=== PATIENT | female | born 1980 | race Caucasian/White ===

== ENCOUNTER → 2016-05-20 | Outpatient (CLI) | payer BC ==
[~2016-05-20] MED LIST: IBUP200C PO; NORCOTAB PO; TYLE325T5 PO
[2016-05-20 13:21] LABS: BASO % 0.3 % (0.0-1.0); EOS # 0.1 K/mm3 (0.0-0.50); EOS % 1.1 % (0.0-3.0); LARGE UNSTAINED CELL # 0.2 K/mm3 (0.0-0.4); LYMPH % 23.5 % (24.0-44.0); MEAN CORPUSCULAR HEMOGLOBIN 25.6 pg (27.0-33.0); MONO # 0.4 K/mm3 (0.0-0.8); MONO % 4.6 % (0.0-5.0); NEUTROPHILS # 5.7 K/mm3 (1.8-7.7); NEUTROPHILS % 68.6 % (36.0-66.0); PLATELET COUNT, AUTOMATED 230 k/mm3 (150-450); RED CELL DISTRIBUTION WIDTH 13.7 % (11.5-14.5); WHITE BLOOD COUNT 8.3 K/mm3 (4.0-10.0)
[2016-05-20 14:12] LABS: ANION GAP 8 MEQ/L (8-16); BLOOD UREA NITROGEN 13 MG/DL (7-18); CARBON DIOXIDE LEVEL 29 MEQ/L (21-32); CHLORIDE LEVEL 103 MEQ/L (98-107); CHOLESTEROL LEVEL 191 MG/DL (<200); CREATININE FOR GFR 0.74 MG/DL (0.55-1.02); FERRITIN 12 NG/ML (8-252); GLOMERULAR FILTRATION RATE > 60.0 (>60); GLUCOSE, FASTING 89 MG/DL (70-105); PERCENT SATURATION 12.2 % (13.2-37.4); POTASSIUM SERUM 4.6 MEQ/L (3.5-5.1); SODIUM LEVEL 140 MEQ/L (136-145); TOTAL IRON BINDING CAPACITY 410 UG/DL (250-450); TRIGLYCERIDES LEVEL 234 MG/DL (<150)
== END ==
LOC: M WUC 08:38
PROVIDERS: ATTEND Physician Assistant Medical
DX: E78.1 Pure hyperglyceridemia (principal); R60.0 Localized edema; D50.9 Iron deficiency anemia, unspecified

== ENCOUNTER → 2016-06-02 | Outpatient (CLI) | payer BC ==
[~2016-06-02] MED LIST changes: +METHACHOLINE KIT (J7674) INH ONE
== END ==
LOC: M CARPUL 08:32
PROVIDERS: ATTEND Nurse Practitioner Adult Health
DX: R06.02 Shortness of breath (principal)

== ENCOUNTER 2016-07-31 11:34 | Emergency (ER) | payer BC ==
[~2016-07-31] VITALS: Ht 172.7 cm; Wt 113.4 kg
[~2016-07-31 11:34] MED LIST changes: -METHACHOLINE KIT (J7674) INH ONE
[2016-07-31] MEDS ORDERED: OMEP40CA2 PO (11:41)
--- NOTE | 2016-07-31 13:00 | REP ---
Clinical: Right lower quadrant pain. Ovarian cyst. Technique: Transabdominal pelvic ultrasound with color Doppler evaluation of the ovaries. Findings: Bladder is unremarkable and measures 5.2 x 4.4 x 4.2 cm . Normal anteverted uterus measures 10.6 x 4.7 x 6.2 cm . The endometrial complex measures 5.9 mm thickness. No discrete uterine or endometrial abnormalities are appreciated. Bilateral ovaries are normal in appearance and vascularity without evidence for torsion. Right ovary measures 3.2 x 2.5 x 2.6 cm ; R I = 0.56 . Left ovary measures 3.3 x 1.9 x 2.9 cm ; R I = 0.53 . No pelvic fluid or adnexal mass lesion . Impression: 1. normal pelvic ultrasound. 2. No ovarian torsion and no ovarian cyst. Signed by Saeed Petty MD 07/31/2016 12:51 P
[2016-07-31 13:05] LABS: MEAN CORPUSCULAR HEMOGLOBIN 24.4 pg (27.0-33.0); MEAN CORPUSCULAR HGB CONC 31.3 g/dl (32.0-36.5); MEAN CORPUSCULAR VOLUME 77.8 fl (80.0-96.0); WHITE BLOOD COUNT 8.6 K/mm3 (4.0-10.0)
[2016-07-31 13:20] LABS: ANION GAP 6 MEQ/L (8-16); BLOOD UREA NITROGEN 11 MG/DL (7-18); CALCIUM LEVEL 8.8 MG/DL (8.5-10.1); CARBON DIOXIDE LEVEL 31 MEQ/L (21-32); CHLORIDE LEVEL 102 MEQ/L (98-107); CREATININE FOR GFR 0.81 MG/DL (0.55-1.02); GLOMERULAR FILTRATION RATE > 60.0 (>60); GLUCOSE, FASTING 96 MG/DL (70-105); POTASSIUM SERUM 3.5 MEQ/L (3.5-5.1); SODIUM LEVEL 139 MEQ/L (136-145)
[2016-07-31] MEDS ORDERED: ZOFR4TAB3 PO (13:37)
[2016-07-31] MEDS ORDERED: IBUP600T26 PO (13:37)
[2016-07-31 13:48] VITALS: BP 130/74
== END 2016-07-31 13:56 | disposition home or self-care (01) ==
LOC: M ED 12:10
DX: R10.2 Pelvic and perineal pain (principal)

== ENCOUNTER → 2017-02-24 | Outpatient (REF) | payer BC ==
[~2017-02-24] MED LIST changes: +IBUP-1022 PO; -IBUP200C PO; +IBUP200C10 PO; +OMEP40CA2 PO; +ZOFR4TAB3 PO
== END ==
LOC: M LAB REF 13:28
PROVIDERS: ATTEND Physician Assistant Medical
DX: L02.224 Furuncle of groin (principal); Z12.4 Encounter for screening for malignant neoplasm of cervix
CPT/HCPCS: 87070; 87077; 87186; 87205; G0123

== ENCOUNTER → 2017-04-08 | Outpatient (CLI) | payer BC ==
[2017-04-08 12:26] LABS: BASO % 0.4 % (0.0-1.0); EOS # 0.1 10^3/uL (0.0-0.50); EOS % 0.6 % (0.0-3.0); IMMATURE GRANULOCYTE % 0.4 % (0-0); LYMPH # 1.6 10^3/uL (1.5-4.5); LYMPH % 17.2 % (24.0-44.0); MEAN CORPUSCULAR VOLUME 84.6 fl (80.0-96.0); MONO # 0.6 10^3/uL (0.0-0.8); MONO % 6.6 % (0.0-5.0); NEUTROPHILS # 6.9 10^3/uL (1.8-7.7); NEUTROPHILS % 74.8 % (36.0-66.0); PLATELET COUNT, AUTOMATED 237 10^3/uL (150-450); RED CELL DISTRIBUTION WIDTH 14.2 % (11.5-14.5); WHITE BLOOD COUNT 9.3 10^3/uL (4.0-10.0)
[2017-04-08 12:45] LABS: ANION GAP 8 MEQ/L (8-16); BLOOD UREA NITROGEN 14 MG/DL (7-18); CALCIUM LEVEL 9.4 MG/DL (8.5-10.1); CARBON DIOXIDE LEVEL 31 MEQ/L (21-32); CHLORIDE LEVEL 103 MEQ/L (98-107); CHOLESTEROL LEVEL 169 MG/DL (<200); CREATININE FOR GFR 0.69 MG/DL (0.55-1.02); FERRITIN 14 NG/ML (8-252); GLOMERULAR FILTRATION RATE > 60.0 (>60); GLUCOSE, FASTING 82 MG/DL (70-105); PERCENT SATURATION 11.5 % (13.2-45.0); POTASSIUM SERUM 4.1 MEQ/L (3.5-5.1); SODIUM LEVEL 142 MEQ/L (136-145); TOTAL IRON BINDING CAPACITY 407 UG/DL (250-450); TRIGLYCERIDES LEVEL 87 MG/DL (<150)
== END ==
LOC: M ADAMS 10:23
PROVIDERS: ATTEND Physician Assistant Medical
DX: E78.1 Pure hyperglyceridemia (principal); D50.9 Iron deficiency anemia, unspecified

== ENCOUNTER → 2018-08-07 | Outpatient (REF) | payer BC ==
[~2018-08-07] MED LIST changes: +HYDR-3715 PO; -IBUP200C10 PO; +IBUP200C25 PO; -NORCOTAB PO; +ZOFR4TAB14 PO; -ZOFR4TAB3 PO
[2018-08-07 13:16] LABS: BASO % 0.5 % (0.0-1.0); EOS # 0.1 10^3/uL (0.0-0.50); EOS % 0.8 % (0.0-3.0); HEMOGLOBIN 12.9 g/dl (12.0-15.5); LYMPH # 1.9 10^3/uL (1.5-4.5); MEAN CORPUSCULAR HGB CONC 30.7 g/dl (32.0-36.5); MEAN CORPUSCULAR VOLUME 81.6 fl (80.0-96.0); MONO # 0.5 10^3/uL (0.0-0.8); MONO % 7.6 % (0.0-5.0); NEUTROPHILS % 61.8 % (36.0-66.0); PLATELET COUNT, AUTOMATED 245 10^3/uL (150-450); RED BLOOD COUNT 5.15 10^6/uL (4.00-5.40); WHITE BLOOD COUNT 6.5 10^3/uL (4.0-10.0)
[2018-08-07 13:29] LABS: BLOOD UREA NITROGEN 18 MG/DL (7-18); CALCIUM LEVEL 9.3 MG/DL (8.5-10.1); CARBON DIOXIDE LEVEL 30 MEQ/L (21-32); CHLORIDE LEVEL 106 MEQ/L (98-107); CREATININE FOR GFR 0.72 MG/DL (0.55-1.30); FERRITIN 6 NG/ML (8-252); GLOMERULAR FILTRATION RATE > 60.0 (>60); GLUCOSE, FASTING 90 MG/DL (70-100); IRON (FE) 39 UG/DL (50-170); PERCENT SATURATION 8.8 % (13.2-45.0); POTASSIUM SERUM 3.8 MEQ/L (3.5-5.1); SODIUM LEVEL 139 MEQ/L (136-145); THYROID STIMULATING HORMONE 0.705 uIU/ML (0.358-3.740); TOTAL 25(OH) VITAMIN D 22.6 NG/ML (30.0-100.0); TOTAL IRON BINDING CAPACITY 444 UG/DL (250-450)
== END ==
LOC: M LABDRWAD 12:17
PROVIDERS: ATTEND Physician Assistant Medical
DX: R53.83 Other fatigue (principal)

== ENCOUNTER → 2019-02-13 | Outpatient (CLI) | payer BC ==
[~2019-02-13] MED LIST changes: -OMEP40CA2 PO; +OMEP40CA97 PO
--- NOTE | 2019-02-13 18:22 | REP ---
Clinical: Trauma. Technique: AP, lateral, bilateral oblique views of the right ankle. Comparison: 10/26/2015, 05/01/2014 Findings: Lateral swelling consist with inversion injury. Mild age-related changes. No acute fracture or dislocation. Corticated bony densities at the lateral malleolus remain stable. Ankle mortise intact. Impression: Lateral swelling. No acute fracture or dislocation. Electronically Signed by Saeed Petty MD 02/13/2019 06:13 P
== END ==
LOC: M ADAMS 09:26
PROVIDERS: ATTEND Physician Assistant Medical
DX: M25.571 Pain in right ankle and joints of right foot (principal); M79.89 Other specified soft tissue disorders

== ENCOUNTER → 2019-12-26 | Outpatient (REF) | payer BC | LOC: M LAB REF 17:55 | PROVIDERS: ATTEND Physician Assistant Medical | DX: Z01.419 Encounter for gynecological examination (general) (routine) without abnormal findings (principal) ==

== ENCOUNTER → 2020-01-13 | Outpatient (REF) | payer BC | LOC: M LAB REF 12:25 | PROVIDERS: ATTEND Physician Assistant | DX: N39.0 Urinary tract infection, site not specified (principal) ==

== ENCOUNTER → 2020-10-17 | Outpatient (CLI) | payer BC ==
[~2020-10-17] MED LIST changes: +OMEP40CA4 PO; -OMEP40CA97 PO
--- NOTE | 2020-10-17 09:27 | REP ---
INDICATION: RUQ ABD PAIN ? STONES COMPARISON: None. TECHNIQUE: Real time gold scale ultrasound examination using curved array transducer. FINDINGS: Gallbladder is contracted with innumerable stones and wall thickening. Right upper quadrant tenderness noted during examination. No biliary ductal dilatation is appreciated and the common bile duct measures 4.3 mm diameter. Liver and pancreas are normal in appearance and echotexture. Right kidney is normal in reniform shape without hydronephrosis and measures 10.7 x 5.6 x 4.9 cm. No ascites in the right upper quadrant. IMPRESSION: Cholelithiasis. Differential diagnosis includes acute/chronic biliary colic as well as early acute cholecystitis cannot be excluded. Clinical correlation is required. <Electronically signed by Saeed Petty > 10/17/20 [id number]
== END ==
LOC: M RAD 08:49
PROVIDERS: ATTEND Family Medicine
DX: K80.20 Calculus of gallbladder without cholecystitis without obstruction (principal)

== ENCOUNTER → 2020-11-27 | Outpatient (REF) | payer BC | LOC: M LAB REF 17:59 | PROVIDERS: ATTEND Nurse Practitioner Family | DX: R35.0 Frequency of micturition (principal) ==

== ENCOUNTER → 2021-09-18 | Outpatient (CLI) | payer BC | LOC: M WHC 10:04 | PROVIDERS: ATTEND Nurse Practitioner Family | DX: Z12.31 Encounter for screening mammogram for malignant neoplasm of breast (principal); Z80.3 Family history of malignant neoplasm of breast; Z92.0 Personal history of contraception ==